=== PATIENT | male | born 1965 | race Caucasian/White ===

== ENCOUNTER 2021-03-09 06:00 | Outpatient (RCR) | payer OTHER, SELFPAY | END 2021-03-11 23:59 | disposition home or self-care (01) | LOC: GPT 06:00 | PROVIDERS: PCP Family Medicine; Referring Provider Family Medicine; Visit Provider Family Medicine | DX: R53.1 Weakness (principal); E87.8 Other disorders of electrolyte and fluid balance, not elsewhere classified | CPT/HCPCS: 97110; 97162; 97530 ==

== ENCOUNTER 2021-03-12 06:00 | Outpatient (RCR) | payer OTHER, SELFPAY | END 2021-04-11 23:59 | disposition home or self-care (01) | LOC: GPT 06:00 | PROVIDERS: PCP Family Medicine; Referring Provider Family Medicine; Visit Provider Family Medicine | DX: R53.1 Weakness (principal); E87.8 Other disorders of electrolyte and fluid balance, not elsewhere classified | CPT/HCPCS: 97110; 97112; 97530 ==

== ENCOUNTER → 2024-09-17 14:45 | Outpatient (BNVA) | payer OTHER, SELFPAY | PROVIDERS: PCP Family Medicine; Visit Provider Family Medicine | DX: J10.1 Influenza due to other identified influenza virus with other respiratory manifestations (principal) | CPT/HCPCS: 87400; 87426 ==

== ENCOUNTER → 2024-09-24 13:00 | Outpatient (BNVA) | payer OTHER, SELFPAY | PROVIDERS: PCP Family Medicine; Visit Provider Family Medicine | DX: E55.9 Vitamin D deficiency, unspecified (principal); E11.9 Type 2 diabetes mellitus without complications; Z79.4 Long term (current) use of insulin; I25.10 Atherosclerotic heart disease of native coronary artery without angina pectoris; I10 Essential (primary) hypertension | CPT/HCPCS: 80053; 80061; 82306; 82607; 82746; 83721; 83735; 84439; 84443; 85025; G0103 ==

== ENCOUNTER → 2024-10-05 14:45 | Outpatient (BNVA) | payer OTHER, SELFPAY | PROVIDERS: PCP Family Medicine; Visit Provider Family Medicine | DX: E11.9 Type 2 diabetes mellitus without complications (principal); Z79.4 Long term (current) use of insulin; E11.65 Type 2 diabetes mellitus with hyperglycemia | CPT/HCPCS: 83519; 84681; 86337 ==

== ENCOUNTER → 2024-10-22 13:00 | Outpatient (BNVA) | payer OTHER, SELFPAY | PROVIDERS: PCP Family Medicine; Visit Provider Family Medicine | DX: E11.9 Type 2 diabetes mellitus without complications (principal); Z79.4 Long term (current) use of insulin; E11.65 Type 2 diabetes mellitus with hyperglycemia | CPT/HCPCS: 83036 ==

== ENCOUNTER → 2025-01-06 08:36 | Outpatient (BNVA) | payer OTHER, SELFPAY | PROVIDERS: PCP Family Medicine; Visit Provider Family Medicine | DX: E11.9 Type 2 diabetes mellitus without complications (principal); Z79.4 Long term (current) use of insulin; E11.65 Type 2 diabetes mellitus with hyperglycemia | CPT/HCPCS: 83036 ==

== ENCOUNTER → 2025-02-10 07:25 | Outpatient (BNVA) | payer OTHER, SELFPAY | PROVIDERS: PCP Family Medicine; Visit Provider Family Medicine | DX: E11.65 Type 2 diabetes mellitus with hyperglycemia (principal) | CPT/HCPCS: 82962 ==

== ENCOUNTER → 2025-02-25 10:05 | Outpatient (BNVA) | payer OTHER, SELFPAY | PROVIDERS: PCP Family Medicine; Visit Provider Family Medicine | DX: E11.9 Type 2 diabetes mellitus without complications (principal); R79.89 Other specified abnormal findings of blood chemistry; E87.6 Hypokalemia; Z79.4 Long term (current) use of insulin; E11.65 Type 2 diabetes mellitus with hyperglycemia | CPT/HCPCS: 80048; 82607; 83036 ==

== ENCOUNTER → 2025-05-26 08:00 | Outpatient (BNVA) | payer OTHER, SELFPAY | PROVIDERS: PCP Family Medicine; Visit Provider Family Medicine | DX: E11.9 Type 2 diabetes mellitus without complications (principal); Z79.4 Long term (current) use of insulin; E11.65 Type 2 diabetes mellitus with hyperglycemia; R79.89 Other specified abnormal findings of blood chemistry; E29.1 Testicular hypofunction | CPT/HCPCS: 80053; 82607; 83036; 84403; 85025 ==